=== PATIENT | male | born 1995 | race African-American/Black ===

== ENCOUNTER 2021-09-19 09:48 | Emergency (ER) | payer OTHER, SELFPAY ==
--- NOTE | ~2021-09-19 | XR_ITS ---
EXAMINATION: XR foot LT min 3V DATE: 09/19/2021 10:22 INDICATION: Left great toe injury. TECHNIQUE: 4 views of left foot were obtained. COMPARISON: None. FINDINGS: There is a nondisplaced stellate fracture of first proximal phalanx with involvement of the distal articular surface. There is mild osteoarthritis of first metatarsophalangeal joint. IMPRESSION: 1. Nondisplaced stellate fracture of first proximal phalanx. Reviewed, dictated and finalized at location A.
[2021-09-19 09:49] VITALS: BP 145/82; PULSE 88; RESP 18; TEMP 36.2; O2SAT 99
--- NOTE | 2021-09-19 10:48 | ED.LOWEXIN ---
HPI - Extremity Injury (Lower) General Chief Complaint: Extremity Injury, Lower Stated Complaint: left big toe pain Time Seen by Provider: 09/19/21 09:52 History of Present Illness HPI Narrative: 26-year-old male presents the emergency room for evaluation of left toe pain. States yesterday he walked through a puddle of water, slipped and proceeded to stop his toe on the side of a park bench. Patient noticed immediate pain and swelling to the toe. The pain is worse with ambulation. Denies any radiating pain. Related Data Home Medications Medication Instructions Recorded Confirmed No Home Medications 09/19/21 09/19/21 Allergies Allergy/AdvReac Type Severity Reaction Status Date / Time No Known Allergies Allergy Verified 09/19/21 09:52 Review of Systems Review of Systems: CONSTITUTIONAL: Denies fever, chills, or sweats. EYES: Denies visual changes, redness, or discharge. ENT: Denies rhinorrhea, congestion, sore throat, or otalgia. CARDIOVASCULAR: Denies chest pain, palpitations, or edema. RESPIRATORY: Denies cough or dyspnea. GASTROINTESTINAL: Denies abdominal pain, nausea, vomiting, or diarrhea. GENITOURINARY: Denies dysuria or hematuria. SKIN: Denies rash or itching. MUSCULOSKELETAL: Reports left toe pain NEUROLOGIC: Denies headache, numbness, dizziness, or weakness. PSYCHIATRIC: Denies anxiety or depression. Exam Narrative: GENERAL: Well-appearing, well-nourished, no physical limitations, and in no acute distress. HEAD: Normocephalic, atraumatic. EYES: Conjunctivae normal, PERRLA and EOMI. CHEST: Clear to auscultation. No respiratory distress. No wheezes rales or rhonchi. No tenderness. HEART: Regular rate and rhythm. No murmur heard. Normal peripheral pulses. EXTREMITIES: Left great toe: Tenderness to the proximal phalanx and IP joint. No obvious bony abnormality. Neurovascular is intact distally SKIN: Warm, dry, no rash. No noted wounds NEURO: No focal deficits. Alert and oriented x3. MAEW. CN's II-XI intact bilaterally, normal gait PSYCH: Cooperative. Normal mood and affect. Course Vital Signs Vital signs: Vital Signs Temperature 36.2 C L 09/19/21 09:49 Pulse Rate 88 09/19/21 09:49 Respiratory Rate 18 09/19/21 09:49 Blood Pressure 145/82 H 09/19/21 09:49 Pulse Oximetry 99 09/19/21 09:49 Oxygen Delivery Room Air 09/19/21 09:49 Temperature 36.2 C L 09/19/21 09:49 Pulse Rate 88 09/19/21 09:49 Respiratory Rate 18 09/19/21 09:49 Blood Pressure 145/82 H 09/19/21 09:49 Pulse Oximetry 99 09/19/21 09:49 Oxygen Delivery Room Air 09/19/21 09:49 Discharge Plan Discharge Clinical Impression: Fracture of toe Patient Disposition: Home, Self-Care Condition: Stable Instructions: Antibiotic Form Prescriptions: No Action No Home Medications Follow-up/Referrals: PHYSICIAN,[employer] [Primary Care Provider] -
== END 2021-09-19 11:15 | disposition home or self-care (01) ==
LOC: ANHED 10:52
PROVIDERS: Emergency Provider Nurse Practitioner Family
DX: S92.415A Nondisplaced fracture of proximal phalanx of left great toe, initial encounter for closed fracture (principal); W22.09XA Striking against other stationary object, initial encounter
CPT/HCPCS: 73630; 99284